=== PATIENT | male | born 1985 | race Caucasian/White ===

== ENCOUNTER 2020-12-30 12:04 | Emergency (ER) | payer BC ==
[2020-12-30] MEDS ORDERED: Lidocaine 2% Viscous Solution 15 ML Cup PO ONE (13:24)
--- NOTE | 2020-12-30 13:24 | EDM.PDOC ---
ED HPI GENERAL MEDICAL PROBLEM - General Chief Complaint: General Stated Complaint: UPPER RIGHT TOOTH PAIN Time Seen by Provider: 12/30/20 13:15 Source of Information: Reports: Patient, RN, RN Notes Reviewed History Limitations: Reports: No Limitations - History of Present Illness INITIAL COMMENTS - FREE TEXT/NARRATIVE: Patient is a 35-year-old male who presents to ER with complaint of right upper dental pain. Patient states the pain began yesterday, states today it is difficult to chew or eat. Patient states he has been using Tylenol and ibuprofen for pain. Patient denies any allergies to medications at this time. Patient denies fever or chills. Onset: Gradual Onset Date: 12/29/20 Duration: Getting Worse Location: Reports: Other (dental) Quality: Reports: Ache Severity: Moderate Improves with: Reports: None Worsens with: Reports: None Associated Symptoms: Reports: No Other Symptoms Treatments SPRAY DYER: Reports: NSAIDS Right Upper Tooth/Teeth Pain Score (Numeric/FACES): 8 - Related Data Allergies Allergy/AdvReac Type Severity Reaction Status Date / Time No Known Allergies Allergy Verified 12/30/20 12:29 Home Meds: Home Meds . [No Known Home Meds] 12/30/20 [History] Past Medical History HEENT History: Reports: Impaired Vision Gastrointestinal History: Reports: Cholelithiasis Endocrine/Metabolic History: Reports: Obesity/BMI 30+ - Past Surgical History GI Surgical History: Reports: Cholecystectomy Social & Family History - Tobacco Use Tobacco Use Status *Q: Current Every Day Tobacco User Years of Tobacco use: 20 Packs/Tins Daily: 1 - Caffeine Use Caffeine Use: Reports: Soda - Recreational Drug Use Recreational Drug Use: No ED ROS GENERAL - Review of Systems Review Of Systems: Comprehensive ROS is negative, except as noted in HPI. ED EXAM, GENERAL - Physical Exam Exam: See Below Exam Limited By: No Limitations General Appearance: Alert, WD/WN, No Apparent Distress Eye Exam: Bilateral Eye: EOMI, Normal Inspection, PERRL Ears: Normal External Exam, Normal Canal, Hearing Grossly Normal, Normal TMs Nose: Normal Inspection, Normal Mucosa, No Blood Throat/Mouth: Other (erythema and swelling right upper gums) Head: Atraumatic, Normocephalic Neck: Normal Inspection, Supple, Non-Tender, Full Range of Motion Respiratory/Chest: No Respiratory Distress, Lungs Clear, Normal Breath Sounds, No Accessory Muscle Use, Chest Non-Tender Cardiovascular: Normal Peripheral Pulses, Regular Rate, Rhythm, No Edema, No Gallop, No JVD, No Murmur, No Rub GI/Abdominal: Normal Bowel Sounds, Soft, Non-Tender, No Organomegaly, No Distention, No Abnormal Bruit, No Mass (Male) Exam: Deferred Rectal (Males) Exam: Deferred Back Exam: Normal Inspection, Full Range of Motion, NT Extremities: Normal Inspection, Normal Range of Motion, Non-Tender, Normal Capillary Refill, No Pedal Edema Neurological: Alert, Oriented, CN II-XII Intact, Normal Cognition, Normal Gait, Normal Reflexes, No Motor/Sensory Deficits Psychiatric: Normal Affect, Normal Mood Skin Exam: Warm, Dry, Intact, Normal Color, No Rash Lymphatic: No Adenopathy Course - Vital Signs Last Recorded V/S: Last Vital Signs Temp 98.0 F 12/30/20 12:27 Pulse 106 H 12/30/20 12:27 Resp 18 12/30/20 12:27 BP 133/96 H 12/30/20 12:27 Pulse Ox 96 12/30/20 12:27 - Orders/Labs/Meds Meds: Medications Discontinued Medications Generic Name Dose Route Start Last Admin Trade Name Mika PRN Reason Stop Dose Admin Lidocaine HCl 15 ml 12/30/20 13:24 12/30/20 13:44 Lidocaine 2% Viscous Solution 15 Ml Cup PO 12/30/20 13:25 15 ml ONETIME ONE Administration Departure - Departure Time of Disposition: 13:26 Disposition: Home, Self-Care 01 Condition: Good Clinical Impression: Dental abscess - Discharge Information *PRESCRIPTION DRUG MONITORING PROGRAM REVIEWED*: No *COPY OF PRESCRIPTION DRUG MONITORING REPORT IN PATIENT APRIL: No Instructions: Dental Abscess, [id number] Referrals: PCP,None [Primary Care Provider] - Forms: ED Department Discharge Additional Instructions: Follow-up with dentistry May use Tylenol and/or ibuprofen as directed for pain/fever Rx: Amoxicillin 500 mg orally twice daily for 10 days Sepsis Event Note (ED) - Evaluation Sepsis Screening Result: Possible Sepsis Risk - Focused Exam Vital Signs: Vital Signs Temp Pulse Resp BP Pulse Ox 12/30/20 12:27 98.0 F 106 H 18 133/96 H 96
== END 2020-12-30 13:44 | disposition home or self-care (01) ==
LOC: DL.ED 12:04
DX: K04.7 Periapical abscess without sinus (principal); E66.9 Obesity, unspecified; Z68.43 Body mass index [BMI] 50.0-59.9, adult; Z72.0 Tobacco use; Z91.49 Other personal history of psychological trauma, not elsewhere classified
CPT/HCPCS: 99282; A9270-GY

== ENCOUNTER 2022-08-09 05:43 | Emergency (ER) | payer BC ==
[2022-08-09 06:37] LABS: ANION GAP 13.9 mEq/L (7-13)
[2022-08-09 06:40] LABS: CORONAVIRUS COVID-19 NAA POSITIVE (NEGATIVE)
== END 2022-08-09 06:49 | disposition home or self-care (01) ==
LOC: DL.ED 05:43
DX: U07.1 COVID-19 (principal); E66.9 Obesity, unspecified; Z68.43 Body mass index [BMI] 50.0-59.9, adult
CPT/HCPCS: 0240U; 36415; 71046; 80053; 83605; 85025; 99284; 99285

== ENCOUNTER 2023-01-06 02:18 | Emergency (ER) | payer BC, MEDICAID ==
[2023-01-06] MEDS ORDERED: Ketorolac 30 MG/ML SDV IM ONE (05:35)
[2023-01-06] MEDS ORDERED: Amoxicillin/Clavulanate K 875-125 MG Tab PO ONE (05:36)
[2023-01-06] MEDS ORDERED: Bupivacaine 0.25% 10 ML SDV INJECT ONE (05:37)
[2023-01-06] MEDS ORDERED: Take Home: Amoxicillin/Clavulanate K 875-125 MG Tab, 6 Tab Pack PO ONE (05:40)
== END 2023-01-06 06:42 | disposition home or self-care (01) ==
LOC: DL.ED 02:18
DX: K04.7 Periapical abscess without sinus (principal); F17.210 Nicotine dependence, cigarettes, uncomplicated; E66.9 Obesity, unspecified; Z68.43 Body mass index [BMI] 50.0-59.9, adult
CPT/HCPCS: 64400; 96372; 99282; A9270; J1885; J3490

== ENCOUNTER 2023-01-06 21:09 | Emergency (ER) | payer BC, MEDICAID ==
[2023-01-06] MEDS ORDERED: diphenhydrAMINE 50 MG Cap PO ONE (22:38)
== END 2023-01-06 23:15 | disposition home or self-care (01) ==
LOC: DL.ED 21:09
DX: F41.9 Anxiety disorder, unspecified (principal); E66.9 Obesity, unspecified; F17.210 Nicotine dependence, cigarettes, uncomplicated; Z68.43 Body mass index [BMI] 50.0-59.9, adult
CPT/HCPCS: 99283; Q0163

== ENCOUNTER 2023-05-03 11:14 | Emergency (ER) | payer MEDICAID ==
[2023-05-03] MEDS ORDERED: Sodium Chloride 0.9% 10 ML Syringe FLUSH PRN (11:32)
[2023-05-03 11:51] LABS: HEMATOCRIT 44.4 % (40.0-54.0); HEMOGLOBIN 14.5 g/dL (14.0-18.0); MEAN CORPUSCULAR HEMOGLOBIN 28.7 pg (27.0-34.0); MEAN CORPUSCULAR HGB CONC 32.7 g/dL (33.0-35.0); MEAN CORPUSCULAR VOLUME 87.7 fL (80-100); PLATELET COUNT,PLT 297 10^3/uL (150-450); RED BLOOD CELL COUNT 5.06 10^6/uL (4.6-6.2); WHITE BLOOD CELL COUNT,WBC 11.7 10^3/uL (5.0-10.0)
[2023-05-03 11:52] LABS: BASOPHILS PERCENT AUTO 0.3 % (0.0-1.0); NEUTROPHILS PERCENT AUTO 69.7 % (42.2-75.2)
[2023-05-03 12:01] LABS: EOSINOPHILS PERCENT MAN 2 % (1-3); LYMPHOCYTES PERCENT MAN 18 % (20-50); MONOCYTES PERCENT MAN 6 % (2-8); SEG NEUTROPHILS PERCENT MAN 74 % (42-75)
[2023-05-03 12:17] LABS: A/G RATIO 0.85; ALBUMIN 3.3 g/dL (3.4-5.0); BILIRUBIN TOTAL 0.5 mg/dL (0.2-1.0); BUN/CREATININE RATIO 8.4 (No establ ref range); CALCIUM 8.7 mg/dL (8.5-10.1); CREATININE 0.95 mg/dL (0.70-1.30); EST CRCL DRUG DOSING (CG) 114.49 mL/min; MAGNESIUM 1.8 mg/dL (1.8-2.4); PROTEIN TOTAL,TP 7.2 g/dL (6.4-8.2); TSH ULTRASENSITIVE 2.16 uIU/mL (0.36-3.74)
== END 2023-05-03 12:44 | disposition home or self-care (01) ==
LOC: DL.ED 11:14
DX: R07.89 Other chest pain (principal); E66.9 Obesity, unspecified; Z68.43 Body mass index [BMI] 50.0-59.9, adult; Z90.49 Acquired absence of other specified parts of digestive tract
CPT/HCPCS: 36415; 80053; 82150; 83690; 83735; 84443; 84484; 85025; 93005; 93010; 99284; 99285; J3490

== ENCOUNTER 2023-10-06 12:05 | Emergency (ER) | payer SELFPAY ==
[2023-10-06] MEDS: Take Home: Amoxicillin/Clavulanate K 875-125 MG Tab, 6 Tab Pack PO ONE (12:37)
[2023-10-06] MEDS: Take Home: Lidocaine 2% Viscous Solution 15 ML UD, 2 Cup Pack PO ONE (12:37)
[2023-10-06] MEDS: Lidocaine 2% Viscous Solution 15 ML UD PO ONE (12:38)
[2023-10-06] MEDS: Amoxicillin/Clavulanate K 875-125 MG Tab PO ONE (12:42)
== END 2023-10-06 12:47 | disposition home or self-care (01) ==
LOC: DL.ED 12:05
DX: K02.9 Dental caries, unspecified (principal); Z90.49 Acquired absence of other specified parts of digestive tract
CPT/HCPCS: 99282; A9270

== ENCOUNTER 2024-06-20 19:30 | Emergency (ER) | payer SELFPAY ==
[2024-06-20] MEDS: Ketorolac 30 MG/ML SDV IM ONE (20:48)
== END 2024-06-20 21:25 | disposition home or self-care (01) ==
LOC: DL.ED 19:30
DX: J10.1 Influenza due to other identified influenza virus with other respiratory manifestations (principal); Z86.16 Personal history of COVID-19; Z90.49 Acquired absence of other specified parts of digestive tract
CPT/HCPCS: 87081; 87428; 87430; 96372; 99283; J1885

== ENCOUNTER 2025-03-31 18:09 | Emergency (ER) | payer SELFPAY ==
[2025-03-31] MEDS: Amoxicillin/Clavulanate K 875-125 MG Tab PO ONE (18:34)
== END 2025-03-31 18:34 | disposition home or self-care (01) ==
LOC: DL.ED 18:09
DX: M27.2 Inflammatory conditions of jaws (principal); E66.9 Obesity, unspecified; F17.200 Nicotine dependence, unspecified, uncomplicated; Z86.16 Personal history of COVID-19; Z68.43 Body mass index [BMI] 50.0-59.9, adult; Z90.49 Acquired absence of other specified parts of digestive tract
CPT/HCPCS: 99283; A9270